=== PATIENT | female | born 1965 | race Caucasian/White ===

== ENCOUNTER 2021-05-27 09:48 | Inpatient (IN) | payer OTHER ==
[2021-05-27 12:52] LABS: COCAINE, UR NEGATIVE (NEGATIVE); METHADONE, UR NEGATIVE (NEGATIVE); URINE BARBITURATES NEGATIVE (NEGATIVE)
[2021-05-27 12:53] LABS: OPIATES, URI NEGATIVE (NEGATIVE); PHENCYCLIDINE,URINE NEGATIVE (NEGATIVE); URINE AMPHETAMINES NEGATIVE (NEGATIVE)
[2021-05-27 12:59] LABS: URINE BENZODIAZEPINES POSITIVE (NEGATIVE)
[2021-05-27 13:36] LABS: BASO % 0.3 % (0-2.0); EOS % 0.1 % (0-4.5); HEMATOCRIT 46.5 % (32.4-45.2); HEMOGLOBIN 16.3 GM/dL (10.7-15.3); LYMPH % 15.7 % (8-40); MCH 31.5 pg (25.7-33.7); MCHC 35.1 g/dl (32.0-36.0); MEAN CELL VOLUME 89.8 fl (80-96); MEAN PLT VOLUME 7.8 fl (7.5-11.1); MONO % 3.7 % (3.8-10.2); NEUT % 80.2 % (42.8-82.8); PLATELET COUNT 349 10^3/uL (134-434); RBC 5.18 M/mm3 (3.60-5.2); RDW 12.9 % (11.6-15.6); WHITE BLOOD COUNT 10.4 K/mm3 (4.0-10.0)
[2021-05-27 13:56] LABS: CALCIUM 10.3 mg/dL (8.5-10.1)
[2021-05-27 14:00] LABS: CREATININE 0.6 mg/dL (0.55-1.3)
[2021-05-27 14:01] LABS: BILIRUBIN,TOTAL 0.7 mg/dL (0.2-1)
[2021-05-27] MEDS ORDERED: methaDONE HCL 10 MG TABLET (FOR DETOX USE ONLY) PO ONE (14:57)
[2021-05-27] MEDS ORDERED: cloNIDine HCL 0.1 MG TABLET PO PRN (14:57)
[2021-05-27] MEDS ORDERED: clonazePAM 0.5 MG TABLET PO PRN ×2 (14:57→18:24)
[2021-05-27] MEDS ORDERED: methaDONE HCL 10 MG TABLET PO ONE (15:46)
[2021-05-27] MEDS ORDERED: methaDONE HCL 10 MG TABLET ONE (16:55)
[2021-05-27 20:00] VITALS: BMI 25.2
[2021-05-27] MEDS ORDERED: ZOLPIDEM TARTRATE 5 MG TABLET PO PRN (22:00)
[2021-05-28 06:32] VITALS: PULSE 73
[2021-05-28 08:13] LABS: HEMATOCRIT 40.1 % (32.4-45.2); HEMOGLOBIN 14.2 GM/dL (10.7-15.3); MCH 31.7 pg (25.7-33.7); MCHC 35.3 g/dl (32.0-36.0); MEAN CELL VOLUME 89.8 fl (80-96); PLATELET COUNT 290 10^3/uL (134-434); RBC 4.46 M/mm3 (3.60-5.2); RDW 12.6 % (11.6-15.6); WHITE BLOOD COUNT 6.9 K/mm3 (4.0-10.0)
[2021-05-28 08:32] LABS: CALCIUM 9.1 mg/dL (8.5-10.1)
[2021-05-28 08:33] LABS: BLOOD UREA NITROGEN 20.3 mg/dL (7-18); MAGNESIUM 2.2 mg/dL (1.8-2.4)
[2021-05-28 08:36] LABS: BILIRUBIN,TOTAL 0.7 mg/dL (0.2-1); CREATININE 0.6 mg/dL (0.55-1.3); PHOSPHOROUS 4.2 mg/dL (2.5-4.9)
[2021-05-28 08:37] LABS: TOT PROT 7.2 g/dl (6.4-8.2)
[2021-05-28] MEDS ORDERED: methaDONE HCL 10 MG TABLET PO ONE (10:00)
[2021-05-28] MEDS ORDERED: SERTRALINE HCL 50 MG TABLET (FP) PO SCH (10:00)
[2021-05-28] MEDS ORDERED: ENOXAPARIN NA (PORCINE) 40 MG/0.4 ML DISP.SYRIN SQ SCH (10:00)
[2021-05-28 12:41] VITALS: BP 104/70; TEMP 98.6
[2021-05-29] MEDS ORDERED: methaDONE HCL 10 MG TABLET PO ONE (10:00)
[2021-05-31] MEDS ORDERED: methaDONE HCL 10 MG TABLET PO ONE (10:00)
== END 2021-05-28 14:05 | disposition home or self-care (01) | DRG 773 ==
LOC: JER 09:48 → JERBED 14:39 → J8W 19:02
PROVIDERS: ADMIT Internal Medicine
DX: F11.229 Opioid dependence with intoxication, unspecified (principal); F33.9 Major depressive disorder, recurrent, unspecified; F41.8 Other specified anxiety disorders; F41.0 Panic disorder [episodic paroxysmal anxiety]; M54.30 Sciatica, unspecified side; R00.2 Palpitations; R25.1 Tremor, unspecified; R63.0 Anorexia; Z88.0 Allergy status to penicillin
CPT/HCPCS: 36415; 80053; 80307; 83735; 84100; 85025; 85027; 93005; 93010; 99285-25; C9803; U0003; U0005

== ENCOUNTER 2024-03-19 04:35 | Day surgery (SDC) | payer OTHER ==
[2024-03-16 11:20] VITALS: BMI 27.1
[2024-03-19 08:59] VITALS: TEMP 97.8
[2024-03-19 09:30] VITALS: BP 127/74; PULSE 54; RESP 13
== END 2024-03-19 09:45 | disposition home or self-care (01) ==
LOC: JASU-ENDO 04:35
PROVIDERS: ATTEND Internal Medicine Gastroenterology
PROC: 0DB68ZX Excision of Stomach, Via Natural or Artificial Opening Endoscopic, Diagnostic (ICD-10-PCS; 2024-03-19)
PROC: 0DB78ZX Excision of Stomach, Pylorus, Via Natural or Artificial Opening Endoscopic, Diagnostic (ICD-10-PCS; 2024-03-19)
PROC: 0DJD8ZZ Inspection of Lower Intestinal Tract, Via Natural or Artificial Opening Endoscopic (ICD-10-PCS; principal; 2024-03-19 08:00)
DX: Z12.11 Encounter for screening for malignant neoplasm of colon (principal); K64.8 Other hemorrhoids; K31.7 Polyp of stomach and duodenum; K29.50 Unspecified chronic gastritis without bleeding; Z87.19 Personal history of other diseases of the digestive system
CPT/HCPCS: 88305-TC; 88342-TC